=== PATIENT | male | born 1980 | race Caucasian/White ===

== ENCOUNTER 2019-03-05 17:59 | Emergency (ER) | payer OTHER ==
[~2019-03-05] VITALS: Ht 152.4 cm; Wt 103.1 kg
[2019-03-05 19:05] VITALS: Ht 152.4 cm; Wt 103.1 kg
[2019-03-05 20:09] LABS: BASOPHIL % 0.5 % (0-2); RED CELL DISTRIBUTION WIDTH 13.6 % (11.5-14.5)
[2019-03-05 20:13] LABS: CALCIUM 7.8 mg/dL (8.5-10.1); CHLORIDE SERUM 104 mmol/L (98-107); CREATININE SERUM 0.7 mg/dL (0.7-1.3); GFR1 > 60 mL/min; GLUCOSE SERUM 139 mg/dL (74-106); POTASSIUM SERUM 3.3 mmol/L (3.5-5.1); SODIUM SERUM 140 mmol/L (136-145)
[2019-03-05 20:18] LABS: ALBUMIN 3.4 g/dL (3.4-5.0); ALKALINE PHOSPHATASE 200 U/L (46-116); ALT/SGPT 40 U/L (16-63); BILIRUBIN TOTAL 1.03 mg/dL (0.20-1.00); MAGNESIUM 1.7 mg/dL (1.8-2.4)
[2019-03-05 20:22] LABS: TOTAL PROTEIN, SERUM 8.7 g/dL (6.4-8.2)
[2019-03-05 20:25] LABS: PLATELET COUNT 128 x10^3mcL (130-400)
[2019-03-05 21:31] LABS: AST/SGOT 42 U/L (15-37)
[2019-03-05 22:36] VITALS: BP 152/115
== END 2019-03-05 22:36 | disposition home or self-care (01) ==
LOC: ED 17:59
PROVIDERS: Emergency Medicine
DX: S81.812A Laceration without foreign body, left lower leg, initial encounter (principal); W45.8XXA Other foreign body or object entering through skin, initial encounter; Y93.89 Activity, other specified; Y92.89 Other specified places as the place of occurrence of the external cause; Y99.8 Other external cause status
CPT/HCPCS: 36415; 90715; J2001; J2270; J7030

== ENCOUNTER 2019-03-16 09:01 | Emergency (ER) | payer OTHER ==
[~2019-03-16] VITALS: Ht 162.6 cm; Wt 88.0 kg
[2019-03-16 09:09] VITALS: Ht 162.6 cm; Wt 88.0 kg
[2019-03-16 09:59] VITALS: BP 166/95
== END 2019-03-16 09:59 | disposition home or self-care (01) ==
LOC: ED 09:01
DX: L03.115 Cellulitis of right lower limb (principal)